=== PATIENT | male | born 2000 | race Hispanic/Latino ===

== ENCOUNTER 2020-01-23 21:18 | Emergency (ER) | payer SELFPAY ==
[2020-01-23 21:26] VITALS: BP 124/70
--- NOTE | 2020-01-23 21:56 | Emergency Department Report ---
Chief Complaint: High BP Stated Complaint: HIGH BP Time Seen by Provider: 01/23/20 21:51 - HPI History of Present Illness: This is a 19-year-old without a history of high blood pressure who was a resident at [place] who was sent to the ED to be evaluated for elevated blood pressure. Upon arriving patient blood pressure and vitals were stable. Patient denies any history of high blood pressure taking any blood pressure medication. Patient denies chest pain, shortness of breath, blurry vision, - ROS Review of Systems: As noted in HPI - Exam Vital Signs: Vital Signs 01/23/20 21:25 Temperature 99.1 F Pulse Rate 105 H Respiratory 14 Rate Blood Pressure 124/70 O2 Sat by Pulse 99 Oximetry Physical Exam: GENERAL: Alert and oriented x3, no apparent distress, Normal Gait, atraumatic. HEAD: Head is normocephalic and a-traumatic. LUNGS: Symetrical with respiration, No wheezing, no rales or crackles, CTAB. HEART: S1, S2 present, regular rate and rhythm without murmur, no rubs, no gallops. Non tender to palpation SKIN: Warm and dry, No ulceration or induration present. Multiple scratch sterling located on arms MSE screening note: Focused history and physical exam performed. Due to findings the following was ordered: ED Disposition for MSE Clinical Impression: Physically well but worried Disposition: Z-07 MED SCREENING EXAM-LEFT Is pt being admited?: No Does the pt Need Aspirin: No Condition: Stable Instructions: Hypertension (ED) Additional Instructions: Make sure to follow up with the primary care physician as discussed. If you have any worsening symptoms or develop new symptoms please return to ED immediately. Referrals: [facility] [Outside] - 3-5 Days [facility] [Outside] - 3-5 Days Forms: Work/School Release Form(ED) Time of Disposition: 21:56
== END 2020-01-23 22:09 | disposition left against medical advice (07) ==
LOC: ED 21:18
DX: R03.0 Elevated blood-pressure reading, without diagnosis of hypertension (principal); Z53.21 Procedure and treatment not carried out due to patient leaving prior to being seen by health care provider